=== PATIENT | female | born 1990 | race Caucasian/White ===

== ENCOUNTER → 2020-05-20 09:25 | Outpatient (CLI) | payer OTHER, SELFPAY | PROVIDERS: PCP Student in an Organized Health Care Education/Training Program; Referring Provider Advanced Practice Midwife; Visit Provider Advanced Practice Midwife | DX: Z20.828 Contact with and (suspected) exposure to other viral communicable diseases (principal) | CPT/HCPCS: 87635; 94799; C9803; U0003 ==

== ENCOUNTER 2020-05-25 04:13 | Inpatient (IN) | payer OTHER, SELFPAY ==
[2013-11-17 05:08] VITALS: BMI 25.8
[2020-05-25] VITALS (72 sets, daily range): BP systolic 130–154; BP diastolic 66–103; PULSE 59–85; RESP 14–16; TEMP 36.4–37.4; O2SAT 94–100; BMI 33.5
[2020-05-25] MEDS: Lactated Ringers 500 ML 999 ML IV (04:20)
[2020-05-25] MEDS: Lactated Ringers 1,000 ML 200 ML IV ×2 (04:51→10:17)
[2020-05-25 04:55] LABS: Absolute Lymphocyte Count 1.83 X10^3/uL (0.83-4.51); Absolute Neutrophil Count 7.2 X10^3/uL (2.0-7.7); Basophil# 0.02 X10^3/uL; Basophil% 0.2 % (0-1); Eosinophil# 0.05 X10^3/uL; Eosinophils% 0.5 % (0-5); Hematocrit 31.5 % (37-47); Hemoglobin 10.8 g/dL (12.0-15.0); Lymphocyte # 1.83 X10^3/ul (4.0); Lymphocyte % 18.4 % (19-41); Mean Corp Hgb Conc 34.3 g/dL (32-36); Mean Corpuscular Hgb 31.2 pg (27.0-32.0); Mean Platelet Vol. 12.3 fl (6.2-12.0); Monocyte# 0.78 X10^3/uL; Monocyte% 7.9 % (0-10); NRBC Flagged by Analyzer 0 % (0-5); Neutrophil # 7.18 X10^3/uL (2.7-7.7); Neutrophil % 72.4 % (47-70); Platelet Count 205 K/mm3 (150-450); RBC Distribution Width CV 12.7 % (11.6-14.6); RBC Distribution Width SD 41.2 fl (35.1-43.9); Red Blood Count 3.46 M/mm3 (4.2-5.4); White Blood Count 9.9 K/mm3 (4.4-11.0)
[2020-05-25 05:04] LABS: International Normalized Ratio 0.9; Partial Thromboplast Time 27.4 Seconds (24.1-36.2)
[2020-05-25 05:08] LABS: AST(SGOT) 31 U/L (15-37); Alanine Aminotransfer ALT/SGPT 26 U/L (13-56); Creatinine, Serum 0.75 mg/dL (0.55-1.02); EST Glomerular Filtration Rate 96 mL/min (>60); Est Glom Filt Rate - Afr Amer 116 mL/min (>60); Estimated Creatinine Clearance 118.61 ml/min; Uric Acid 5.5 mg/dL (2.6-6.0)
[2020-05-25] MEDS: fentaNYL-bupivacaine (epidural) 100 ML BAG EPIDURAL (05:37)
[2020-05-25 05:38] LABS: Protein, Urine (Random) 17.5 mg/dL (<11.9); Protein:Creat Ratio 293 mg/g CRE (0-200)
[2020-05-25] MEDS: Oxytocin 30 units/NS 500 ml 30 UNITS/500 ML IV.SOLN IV (07:37)
--- NOTE | 2020-05-25 08:36 | HP.PCM_ITS ---
History Date of Admission: 05/25/20 Final MAK: 05/19/20 Gestational age: 40 Weeks and 6 Days History of this : This is a 29 year-old, G [], P [], at 40 weeks gestational age. Allergies acetaminophen [From Vicodin] Allergy (Verified 11/17/13 05:10) Shortness of breath hydrocodone bitartrate [From Vicodin] Allergy (Verified 11/17/13 05:10) Shortness of breath morphine Allergy (Verified 11/17/13 05:10) Shortness of breath tramadol Allergy (Verified 11/17/13 05:10) Shortness of breath Home Medications: Home Medications Albuterol Inhaler [Ventolin Hfa] 1 - 2 puff INHALATION Q4H PRN PRN #1 inhaler 11/17/13 Smoking Status: Never smoker Alcohol: None Number of Fetus(es): 1 NST - FHR Rate Baby A Baseline: 120 Variability:: Moderate Accelerations:: 15 x 15 Decelerations:: Variable Uterine Activity:: Q 2-5 minutes History Past Pregnancies: Past Pregnancies Delivery Date Name GA/ Weeks Outcome Route Wt Sex Labor Length Anesthesia Delivery Location Provider FOB Labs: See [facility] prenatals Physical Exam Vitals: Vital Signs Temp Pulse BP Pulse Ox 98.4 F 62 141/86 H 99 05/25/20 08:25 05/25/20 08:23 05/25/20 08:09 05/25/20 08:23 General: Alert, Oriented x3 Abdomen: Soft, Non Tender, Non-Distended, Gravid Neurological: Cranial nerves II-XII grossly intact PRESS [employer]ER: Normal external genitalia Estimated gestational size: Appropriate for gestational size Presentation: Cephalic Cervix Dilation (cm): 5 - AROM clear fluid Station: -1 Effacement (%): 80 Assessment/Plan This is a 29 year-old, at 40&6 weeks gestational age. Admit to L&D COVID negative GBS negative Pain - epidural On pitocin for augmentation EFW - less than 4500g, patient with adequate pelvis Routine care
[2020-05-25] MEDS: Ondansetron 4 MG/2 ML Vial IV (09:37)
[2020-05-25] MEDS: Oxytocin 30 units/NS 500 ml 30 UNITS/500 ML IV.SOLN 334 UNITS IV (10:57)
--- NOTE | 2020-05-25 11:15 | PCM.OPRPT ---
Vaginal Delivery Maternal Presentation: Active Labor Amniotic Membrane Rupture Type: Artificial Amniotic Fluid Description: Clear Final MAK: 05/19/20 Gestational age: 40 Weeks and 6 Days Date of Procedure: 05/25/20 Pre-Operative Diagnosis: Labor Post-Operative Diagnosis: Labor Surgery/ Procedure Performed: Spontaneous Vaginal Delivery Type of Anesthesia: Epidural Description of Procedure: Patient prepped & draped in stirrups when C/C/+2. She pushed to deliver head. head was gently guided to allow delivery of anterior and posterior shoulders. No excess traction placed on head. Body delivered and placed on maternal abdomen. 3VC clamped & cut in delayed fashion. Placenta delivered with gentle traction and good uterine tone obtained. Presentation: VISHNU Placental Delivery Description: Expressed Placenta Disposition: [facility] Cord Vessel Description: 3 Vessels Cord Entanglement: None Estimated Blood Loss: 300ml Infant A gender: Male (1 minute): 8 (5 minute): 9 Episiotomy Description: None Laceration: 2nd degree - perineal & 1st degree right vaginal - repaired with 3-0 vicryl Medications given after delivery: IV Pitocin Complications: None
[2020-05-25] MEDS: Ibuprofen 600 MG Tablet PO (20:24)
[2020-05-26 03:40] VITALS: BP 130/66; PULSE 63; RESP 16; TEMP 36.5
[2020-05-26 08:59] VITALS: BP 148/100; PULSE 60; RESP 14; TEMP 36.4
--- NOTE | 2020-05-26 11:35 | PCM.PN.OB ---
- Physical Exam Vitals/I&O's: Vital Signs Temp Pulse Resp BP Pulse Ox 97.5 F L 60 14 148/100 H 99 05/26/20 08:59 05/26/20 08:59 05/26/20 08:59 05/26/20 08:59 05/25/20 09:24 Oxygen Delivery Method Room Air Weight: 233 lb 11.04 oz Body Mass Index (BMI) 33.5 Intake and Output for Last 24 Hours 05/24/20 05/25/20 05/26/20 23:59 23:59 23:59 Intake Total 2956.97 / 2956.97 Output Total 1300 / 1300 Balance 1656.97 / 1656.97 General: Alert, Oriented x3 Abdomen: Soft, Non Tender, Non-Distended - ff mid & below umb Extremities: No Calf Tenderness Neurological: Cranial nerves II-XII grossly intact Current Medications Acetaminophen (Tylenol) 1,000 mg PO Q8H PRN PRN PRN Reason: Pain Score 1-10/10 Albuterol Sulfate (Ventolin Aerosols) 2.5 mg INHALATION Q4H PRN PRN Reason: Wheezing Bisacodyl (Dulcolax) 10 mg RECTAL UD PRN PRN Reason: If no BM Dibucaine (Dibucaine) 1 applic TOPICAL TID PRN PRN; Protocol PRN Reason: Discomfort Hydrocortisone (Hytone) 1 applic TOPICAL TID PRN PRN; Protocol PRN Reason: Discomfort Ibuprofen (Motrin) 600 mg PO Q6H PRN PRN PRN Reason: Pain Score 1-10/10 Last Admin: 05/25/20 20:24 Dose: 600 mg Documented by: Methylergonovine Maleate (Methergine) 0.2 mg IM X1 PRN PRN Reason: Excess bleeding/uterine atony Ondansetron HCl (Zofran) 4 mg IV Q4H PRN PRN PRN Reason: Nausea Senna/Docusate Sodium (Senokot-S, Eulalia-Colace) 1 - 2 tablet PO DAILY PRN PRN PRN Reason: Constipation Simethicone (Mylicon) 80 mg PO PCHS PRN PRN Reason: Indigestion/Stomach pain Sodium Chloride () 5 - 15 ml IV UD PRN PRN Reason: SALINE FLUSH Medical Necessity - Tobacco Use Smoking Status: Never smoker Assessment/Plan PPD#1 Heme - HDS, no issues. Elevated BP's - some mildly elevated BP's during labor & PP. PreE labs normal thus patient with gestational hypertension. Repeat BP again is elevated so will start labetalol and continue to monitor. Patient requests discharge but is agreeable to stay overnight for BP monitoring.
[2020-05-26 12:00] VITALS: BP 144/78; PULSE 65; RESP 14; TEMP 36.4
--- NOTE | 2020-05-26 12:03 | DCINST_ITS ---
Discharge Diet: No Restrictions Discharge Activity: May Drive, May Shower May resume sexual activity in: 6 weeks Additional Instructions: If you experience any of the following, contact your healthcare provider. * Bleeding that soaks a pad every hour for 2 hours * Fever 100.4 or higher * Unrelieved incision or abdominal pain * Swelling, redness, discharge or bleeding from your incision or episiotomy site * Your incision begins to separate * Problems urinating (including inability to urinate or burning while urinating). * Visual changes * Severe headache * Flu-like symptoms * Pain or redness in one of both of your breasts * Pain, warmth, tenderness or swelling in your legs, especially the calf area * Frequent nausea and vomiting * Symptoms of depression or anxiety If you experience any of the following, call 911 or go to the nearest Emergency Room. * Chest pain * Problems breathing * Seizure activity * Partial or complete paralysis of a body part, slurred speech, weakness or drooping of the face, or a sudden inability to walk or hold your balance Allergies/Adverse Reactions: Allergies acetaminophen [From Vicodin] Allergy (Verified 11/17/13 05:10) Shortness of breath hydrocodone bitartrate [From Vicodin] Allergy (Verified 11/17/13 05:10) Shortness of breath morphine Allergy (Verified 11/17/13 05:10) Shortness of breath tramadol Allergy (Verified 11/17/13 05:10) Shortness of breath Medications to take at Discharge Albuterol Inhaler [Ventolin Hfa] 1 - 2 puff INHALATION Q4H PRN PRN #1 inhaler 11/17/13 Ibuprofen [Motrin] 600 mg PO Q6H PRN PRN tablet 05/26/20 Labetalol [Trandate (Beta Maura)] 200 mg PO BID #60 tab 05/26/20 The following prescriptions were given: Labetalol [Trandate (Beta Maura)] 200 mg PO BID #60 tab Prescription Printed Primary Care Physician: Be Batista DO [Primary Care Provider] - Test Results: Test results from this visit will be discussed in further detail at your follow- up appointment, if applicable.
[2020-05-26] MEDS: Labetalol 200 MG Tablet PO ×2 (12:10→20:47)
[2020-05-26 13:00] VITALS: BP 144/72
[2020-05-26 15:15] VITALS: BP 138/82; PULSE 70; RESP 14; TEMP 36.4
[2020-05-26 20:20] VITALS: BP 145/45; PULSE 66; RESP 18; TEMP 36.2
[2020-05-27] VITALS: BP 127/72; PULSE 68
--- NOTE | 2020-05-27 00:07 | PCM.PN.OB ---
Subjective: Denies headaches or blurry vision. She denies complaints other than needs some sleep. - Physical Exam Vitals/I&O's: Vital Signs Temp Pulse Resp BP Pulse Ox 97.2 F L 68 18 127/72 H 99 05/26/20 20:20 05/27/20 00:00 05/26/20 20:20 05/27/20 00:00 05/25/20 09:24 Oxygen Delivery Method Room Air Weight: 233 lb 11.04 oz Body Mass Index (BMI) 33.5 Intake and Output for Last 24 Hours 05/25/20 05/26/20 05/27/20 23:59 23:59 23:59 Intake Total 2956.97 / 2956.97 Output Total 1300 / 1300 Balance 1656.97 / 1656.97 General: Alert, Oriented x3 Abdomen: Soft, Non Tender, Non-Distended Extremities: No Calf Tenderness Current Medications Acetaminophen (Tylenol) 1,000 mg PO Q8H PRN PRN PRN Reason: Pain Score 1-10/10 Albuterol Sulfate (Ventolin Aerosols) 2.5 mg INHALATION Q4H PRN PRN Reason: Wheezing Bisacodyl (Dulcolax) 10 mg RECTAL UD PRN PRN Reason: If no BM Dibucaine (Dibucaine) 1 applic TOPICAL TID PRN PRN; Protocol PRN Reason: Discomfort Hydrocortisone (Hytone) 1 applic TOPICAL TID PRN PRN; Protocol PRN Reason: Discomfort Ibuprofen (Motrin) 600 mg PO Q6H PRN PRN PRN Reason: Pain Score 1-10/10 Last Admin: 05/25/20 20:24 Dose: 600 mg Documented by: Labetalol HCl (Trandate) 200 mg PO TID [facility] Last Admin: 05/26/20 20:47 Dose: 200 mg Documented by: Methylergonovine Maleate (Methergine) 0.2 mg IM X1 PRN PRN Reason: Excess bleeding/uterine atony Ondansetron HCl (Zofran) 4 mg IV Q4H PRN PRN PRN Reason: Nausea Senna/Docusate Sodium (Senokot-S, Eulalia-Colace) 1 - 2 tablet PO DAILY PRN PRN PRN Reason: Constipation Simethicone (Mylicon) 80 mg PO PCHS PRN PRN Reason: Indigestion/Stomach pain Sodium Chloride () 5 - 15 ml IV UD PRN PRN Reason: SALINE FLUSH Medical Necessity - Tobacco Use Smoking Status: Never smoker Assessment/Plan PPD#2 Gestational hypertension - BP's improved on labetalol 200mg tid Plan for discharge later this am
--- NOTE | 2020-05-27 00:13 | DCINST_ITS ---
Discharge Diet: No Restrictions Discharge Activity: May Drive, May Shower May resume sexual activity in: 6 weeks Additional Instructions: If you experience any of the following, contact your healthcare provider. * Bleeding that soaks a pad every hour for 2 hours * Fever 100.4 or higher * Unrelieved incision or abdominal pain * Swelling, redness, discharge or bleeding from your incision or episiotomy site * Your incision begins to separate * Problems urinating (including inability to urinate or burning while urinating). * Visual changes * Severe headache * Flu-like symptoms * Pain or redness in one of both of your breasts * Pain, warmth, tenderness or swelling in your legs, especially the calf area * Frequent nausea and vomiting * Symptoms of depression or anxiety If you experience any of the following, call 911 or go to the nearest Emergency Room. * Chest pain * Problems breathing * Seizure activity * Partial or complete paralysis of a body part, slurred speech, weakness or drooping of the face, or a sudden inability to walk or hold your balance * * TAKE LABETALOL 200MG 3 TIMES PER DAY. Allergies/Adverse Reactions: Allergies acetaminophen [From Vicodin] Allergy (Verified 11/17/13 05:10) Shortness of breath hydrocodone bitartrate [From Vicodin] Allergy (Verified 11/17/13 05:10) Shortness of breath morphine Allergy (Verified 11/17/13 05:10) Shortness of breath tramadol Allergy (Verified 11/17/13 05:10) Shortness of breath Medications to take at Discharge Albuterol Inhaler [Ventolin Hfa] 1 - 2 puff INHALATION Q4H PRN PRN #1 inhaler 11/17/13 Ibuprofen [Motrin] 600 mg PO Q6H PRN PRN tab 05/26/20 Labetalol [Trandate (Beta Maura)] 200 mg PO BID #60 tab 05/26/20 Labetalol [Trandate (Beta Maura)] 200 mg PO TID #90 tablet 05/27/20 The following prescriptions were given: Labetalol [Trandate (Beta Maura)] 200 mg PO BID #60 tab Prescription Printed Labetalol [Trandate (Beta Maura)] 200 mg PO TID #90 tablet Please Follow Up With: Parker Zurita MD - 2-3 days Primary Care Physician: Be Batista DO [Primary Care Provider] - Test Results: Test results from this visit will be discussed in further detail at your follow- up appointment, if applicable.
[2020-05-27 01:50] VITALS: BP 134/74; PULSE 78; RESP 17; TEMP -12.7; TEMP 9.1
[2020-05-27] MEDS: Labetalol 200 MG Tablet PO (06:35)
[2020-05-27 08:19] VITALS: BP 133/77; PULSE 78; RESP 18; TEMP 36.5
== END 2020-05-27 10:35 | disposition home or self-care (01) | DRG 807 ==
LOC: WPOUT 04:16 → WP 04:16
PROVIDERS: Obstetrics & Gynecology; Admitting Provider Obstetrics & Gynecology; PCP Student in an Organized Health Care Education/Training Program; Visit Provider Obstetrics & Gynecology
DX: O76 Abnormality in fetal heart rate and rhythm complicating labor and delivery (principal); O13.4 Gestational [pregnancy-induced] hypertension without significant proteinuria, complicating childbirth; O70.1 Second degree perineal laceration during delivery; Z37.0 Single live birth; Z3A.40 40 weeks gestation of pregnancy
CPT/HCPCS: 59025; 59050; 82565; 82570; 84156; 84450; 84460; 84550; 85025; 85610; 85730; 86850; 86900; 86901; 99218; J7120; G0378; J2405

== ENCOUNTER 2022-07-04 07:10 | Inpatient (IN) | payer OTHER, SELFPAY ==
[2022-07-04] VITALS (104 sets, daily range): BP systolic 89–130; BP diastolic 50–92; PULSE 56–187; TEMP 36.1–37.8; O2SAT 83–100; BMI 33.5
[2022-07-04] MEDS: Lactated Ringers 1,000 ML 50 ML IV ×2 (07:55→12:52)
[2022-07-04 08:08] LABS: Absolute Lymphocyte Count 2.04 X10^3/uL (0.83-4.51); Absolute Neutrophil Count 6.1 X10^3/uL (2.0-7.7); Basophil# 0.02 X10^3/uL; Basophil% 0.2 % (0-1); Eosinophil# 0.08 X10^3/uL; Eosinophils% 0.9 % (0-5); Hematocrit 34.1 % (37-47); Hemoglobin 11.7 g/dL (12.0-15.0); Lymphocyte # 2.04 X10^3/ul (0.83-4.51); Lymphocyte % 22.5 % (19-41); Mean Corp Hgb Conc 34.3 g/dL (32-36); Mean Corpuscular Hgb 33.1 pg (27.0-32.0); Mean Corpuscular Volume 96.3 fL (81-99); Mean Platelet Vol. 11.4 fl (6.2-12.0); Monocyte# 0.72 X10^3/uL; Monocyte% 7.9 % (0-10); NRBC Flagged by Analyzer 0 % (0-5); Neutrophil # 6.09 X10^3/uL (2.7-7.7); Neutrophil % 67.1 % (47-70); Platelet Count 210 K/mm3 (150-450); RBC Distribution Width CV 12.9 % (11.6-14.6); RBC Distribution Width SD 44.8 fl (35.1-43.9); Red Blood Count 3.54 M/mm3 (4.2-5.4); White Blood Count 9.1 K/mm3 (4.4-11.0)
[2022-07-04] MEDS: 0.9% Normal Saline Single 100 ML IV.SOLN. INTRA-UTER (08:15)
[2022-07-04 08:21] LABS: Bedside Glucose 97 mg/dL (74-106)
--- NOTE | 2022-07-04 08:24 | PCM.HP.OB ---
HPI - General General Date of Admission: 07/04/22 Date of Service: 07/04/22 Chief Complaint: IOL for GDMA2 uncontrolled HPI Narrative NIKITA DONOVAN, is a 31 F @ 37.6 weeks who presents medically indicated IOL due to GDMA2, uncontrolled. PFSH PFS Medical History (Updated 07/04/22 @ 23:[address] Emma Gallagher MD) Asthma Elevated blood pressure reading without diagnosis of hypertension Gestational diabetes Home Medications albuterol sulfate 90 mcg/actuation aerosol inhaler (Ventolin HFA) 1 - 2 puff inhalation Q4H PRN PRN Wheezing ##1 11/17/13 [Rx Last Taken Unknown] insulin lispro 200 unit/mL (3 mL) subcutaneous pen 40 unit subcut DAILY gdm 07/04/22 [History Last Taken 07/03/22 23:00] [id number] 1 mg tablet tab PO 07/04/22 [History Last Taken 07/03/22 21:00] Allergy/AdvReac Type Severity Reaction Status Date / Time acetaminophen [From Vicodin] Allergy Shortness Verified 07/04/22 07:27 of breath hydrocodone bitartrate Allergy Shortness Verified 07/04/22 07:27 [From Vicodin] of breath morphine Allergy Shortness Verified 07/04/22 07:27 of breath tramadol Allergy Shortness Verified 07/04/22 07:27 of breath Social History Smoking Status: Former smoker History Elective abortions Hx Para 1 Spontaneous abortions Hx # Term Pregnancies Ectopic pregnancies Hx # Pregnancies Multiple births # of living children NST FHR Rate Baby A Baseline: 135 Variability:: Moderate Accelerations:: 15 x 15 Decelerations:: None NST Reactive:: Yes FHR Category:: Category I Uterine Activity:: occasional Vital Signs Vital Signs Vital Signs: 07/04/22 08:16 07/04/22 08:16 07/04/22 08:17 Temperature Temperature Source Pulse Rate 79 Blood Pressure 119/69 BP Systolic 119 BP Diastolic 69 Pulse Ox 93 07/04/22 08:17 07/04/22 08:16 07/04/22 08:16 Temperature Temperature Source Temporal Pulse Rate 75 Blood Pressure BP Systolic BP Diastolic Pulse Ox 96 07/04/22 08:16 Temperature 97.2 F L Temperature Source Pulse Rate Blood Pressure BP Systolic BP Diastolic Pulse Ox Weight Weight: 105.9 kg Body Mass Index (BMI) 33.5 Physical Exam Narrative VE: 1.5/50/-3- transcervical mcpherson placed with 40cc saline. Pt tolerated well. Const alert and oriented x3 General Appearance: cooperative HEENT normocephalic GI GI Narrative: Gravid, non tender to palpation. OB / External & Speculum: external exam normal Extremity normal to inspection Skin no rashes or lesions noted Neuro oriented x3 and CN's II-XII intact bilaterally Psych Appearance: grossly normal Labs Labs Labs: Blood Type O POSITIVE Antibody Screen NEGATIVE Hct 34.1 % (37-47) L Hgb 11.7 g/dL (12.0-15.0) L Rhogam given: No Assessment & Plan (1) Gestational diabetes mellitus (GDM) requiring insulin: (2) 37 weeks gestation of : PLAN: Plan Admit to L&D Montior FHR/TOCO Epidural if requested for pain Monitor VS Anticipate Insulin pump if indicated will start pitocin
[2022-07-04] MEDS: Oxytocin 30 units/NS 500 ml 30 UNITS/500 ML IV.SOLN IV (08:41)
[2022-07-04 09:35] LABS: Bedside Glucose 97 mg/dL (74-106)
[2022-07-04 13:15] LABS: Bedside Glucose 80 mg/dL (74-106)
[2022-07-04] MEDS: 0.9% Saline Lock 10 ML Syringe IV (15:38)
[2022-07-04 16:10] LABS: Bedside Glucose 69 mg/dL (74-106)
[2022-07-04] MEDS: LACTATED RINGERS 500 ML 999 ML IV ×2 (16:43→21:42)
[2022-07-04 17:00] LABS: Bedside Glucose 71 mg/dL (74-106)
[2022-07-04] MEDS: fentaNYL-bupivacaine (epidural) 100 ML BAG EPIDURAL (17:22)
[2022-07-04 17:51] LABS: Bedside Glucose 69 mg/dL (74-106)
[2022-07-04 18:26] LABS: Bedside Glucose 60 mg/dL (74-106)
[2022-07-04] MEDS: Amnioinfusion- 0.9% NS 1,000 ML IV.SOLN. 1000 ML INTRA-UTER (18:45)
[2022-07-04 19:51] LABS: Bedside Glucose 69 mg/dL (74-106)
[2022-07-04 19:51] LABS: Bedside Glucose 78 mg/dL (74-106)
[2022-07-04 20:31] LABS: Bedside Glucose 87 mg/dL (74-106)
[2022-07-04] MEDS: Lactated Ringers 1,000 ML 200 ML IV (21:29)
[2022-07-04 21:36] LABS: Bedside Glucose 104 mg/dL (74-106)
[2022-07-04 22:10] LABS: Bedside Glucose 82 mg/dL (74-106)
[2022-07-04 23:05] LABS: Bedside Glucose 96 mg/dL (74-106)
[2022-07-04] MEDS: Oxytocin 30 units/NS 500 ml 30 UNITS/500 ML IV.SOLN 334 UNITS IV (23:16)
--- NOTE | 2022-07-04 23:22 | OP.PCM_ITS ---
Vaginal Delivery Maternal Presentation Maternal Presentation: Medically Indicated Induction Type of Induction: Pitocin, Justice Bulb and Amniotomy Medical Reason for Induction: - (uncontrolled GMDA2) Operative Information Date of Procedure: 07/04/22 Pre-Operative Diagnosis: 37+week gestation, GDMA2 uncontrolled Post-Operative Diagnosis: same, live male Surgery / Procedure Performed: Spontaneous Vaginal Delivery Type of Anesthesia: Epidural Drain: Justice to straight drain Estimated Blood Loss: 200 Time of Delivery: 23:14 Findings Description of Procedure: I was called to notify that the patient was complete at 0 station upon pushing efforts deep variable decelerations as well as some late decelerations. Upon my arrival head is at 0 station. Good maternal pushing efforts delivered the infant's head. Tight nuchal cord was noted. This nuchal cord was clamped and cut and reduced. The 's anterior shoulder followed by posterior shoulder and the infant's body was then delivered without difficulty. The was placed on the mother's chest for immediate skin to skin. was vigorous at time of delivery. Delayed cord clamping could not be performed due to the n uchal. Placenta was then delivered intact spontaneously without complication. Vaginal and perineal tissue intact. Presentation: Vertex Amniotic Membrane Rupture Type: Artificial Amniotic Fluid Description: Clear Placental Delivery Description: Spontaneous Placenta Disposition: [facility] Specimen(s) Removed: Placenta Cord Vessel Description: 3 Vessels Cord Entanglement: Around neck x 1, tight Nuchal Cord Compression: With compression Infant A Gender: Male (1 minute): 9 (5 minute): 9 Delayed Cord Clamping: No Post Vaginal Delivery Medications Given After Delivery: IV Pitocin Episiotomy Description: None Laceration: None Complication Complications: None
[2022-07-05] VITALS (23 sets, daily range): BP systolic 100–141; BP diastolic 57–84; PULSE 71–100; RESP 16; TEMP 36.1–37; O2SAT 91–99
[2022-07-05 00:40] LABS: Bedside Glucose 115 mg/dL (74-106)
--- NOTE | 2022-07-05 05:23 | NURSING ---
100 cc's of urine in hat, but pt voided a large amount and most of urine missed hat
[2022-07-05 07:21] LABS: Bedside Glucose 114 mg/dL (74-106)
--- NOTE | 2022-07-05 07:50 | PCM.PROGNOTE ---
Subjective Subjective patient seen at bedside, doing well. Patient reports good pain control. lochia mild. pumping- baby in scn due to breathing Objective Data Objective Data Vital Signs: Vital Signs Temp Pulse Resp BP Pulse Ox O2 Del Method 98.5 F 78 16 121/72 H 91 Room Air 07/05/22 04:44 07/05/22 04:46 07/05/22 04:44 07/05/22 04:46 07/05/22 04:46 07/05/22 04:44 Oxygen Delivery Method Room Air Weight: 105.9 kg Body Mass Index (BMI) 33.5 Intake & Output: Intake and Output for Last 24 Hours 07/03/22 07/04/22 07/05/22 23:59 23:59 23:59 Intake Total 2750.20 / 2750.20 333 / 333 Output Total 1900 / 1900 450 / 450 Balance 850.20 / 850.20 -117 / -117 Lab / Micro Data Result Diagrams: 07/04/22 07:55 Labs: Laboratory Results - last 24 hr 07/04/22 07:45: POC Glucose 97 07/04/22 07:55: WBC 9.1, RBC 3.54 L, Hgb 11.7 L, Hct 34.1 L, MCV 96.3, MCH 33.1 H, MCHC 34.3, RDW Std Deviation 44.8 H, RDW Coeff of Aidee 12.9, Plt Count 210, MPV 11.4, Immature Gran % (Auto) 1.400 H, Neut % (Auto) 67.1, Lymph % (Auto) 22.5, Dickinson % (Auto) 7.9, Eos % (Auto) 0.9, Baso % (Auto) 0.2, Absolute Neuts (auto) 6.1, Absolute Lymphs (auto) 2.04, Nucleated RBC % 0 07/04/22 07:55: Blood Type O POSITIVE, Antibody Screen NEGATIVE 07/04/22 08:50: POC Glucose 97 07/04/22 12:52: POC Glucose 80 07/04/22 15:49: POC Glucose 69 L 07/04/22 16:38: POC Glucose 71 L 07/04/22 17:31: POC Glucose 69 L 07/04/22 18:02: POC Glucose 60 L 07/04/22 18:51: POC Glucose 69 L 07/04/22 19:11: POC Glucose 78 07/04/22 20:06: POC Glucose 87 07/04/22 21:05: POC Glucose 104 07/04/22 21:46: POC Glucose 82 07/04/22 22:44: POC Glucose 96 07/05/22 00:18: POC Glucose 115 H 07/05/22 07:00: POC Glucose 114 H Micro: Microbiology 07/04/22 07:50 Nasal Secretion SARS-CoV-2 Antigen (Rapid) - Final Physical Exam Const alert and oriented x3 General Appearance: cooperative HEENT normocephalic Neck General: normal visual inspection GI soft to palpation and non-distended GI Narrative: Fundus firm Extremity normal to inspection and no calf tenderness Skin no rashes or lesions noted Neuro oriented x3 and CN's II-XII intact bilaterally Psych mental status grossly normal Assessment & Plan Assessment/Plan (1) Vaginal delivery: PLAN: Plan PPD#1 , Doing well Routine care pain mgmt ambulation
--- NOTE | 2022-07-05 08:57 | NURSING ---
0845- This RN IBCLC called to room to assist with pumping. Pt. nervous that not much was coming out. Pump settings set to cycles 80 and suction 25%. Reviewed with pt. that these are good pumping settings. Flanges seemed appropriate size, with nipple being able to move freely in the flange without large amounts of areola being pulled into flange. Pt. pumped for 21 minutes and then this RN assisted with collection of milk as [employer] solution architect was in room giving update on baby in SCN. 5 swabs and 2cc of milk collected in a syringe from this first pumping session. Milk labeled and taken over to SCN and given to SCN RN. Encouraged that pt. was doing a great job and that during the colostrum phase any amounts of colostrum are good to be collected for baby. Education also given in the process of milk transition and purpose of pumping while seperated from . Pt. verbalizes understanding.
[2022-07-05] MEDS: Ibuprofen 600 MG Tablet PO (09:02)
--- NOTE | 2022-07-05 10:37 | CASEMGMT ---
Labor and Delivery Unit Brief SW note? Date of Referral: 07/05/22 Time of Referral: 5:02am Date of Intervention: 07/05/22 Time of Intervention: 9:45am ? Referral Site: [facility] ? Reason for Referral: Special Care Admission ? Brief History SW spoke w/MOB and FOB in [facility]. They have been together for 13 years, have a 2 year old at home named Natty. 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 They have no financial concerns. They have all needed supplies for baby including crib/bassinet/car seat/clothing/diapers/wipes. They have two vehicles. They have supportive family, MOB's mother will watch both children when MOB returns to work. Both MOB and FOB's parents, siblings are helpful. ? No history of mental health or substance abuse issues for FOB and MOB, according to MOB and FOB. ? SW spoke w/them about the events of the last few hours. They were alarmed with the baby being moved to [facility]. He seems to be doing better now and they are relieved, glad he is doing better. Support offered. ? SW did give them information and reviewed information on PPD and anxiety, Help Me Grow, Shaken Baby, Safe sleeping, crisis number, and mental health resources. SW did review signs of PPD with MOB and FOB. Assessment: MOB and FOB both spoke w/SW openly and answered all questions. MOB holding baby and both MOB and FOB attentive to baby. Both parents concerned with baby ending up in [facility], concern appropriate to situation. ? Plan: Baby to go home w/MOB and FOB when ready for discharge. ? Response to Plan: MOB and FOB in agreement with plan. ? NATHALIA Lemus
[2022-07-06 01:45] VITALS: BP 110/67; PULSE 72; RESP 15; TEMP 36.4
[2022-07-06 06:15] LABS: Bedside Glucose 86 mg/dL (74-106)
--- NOTE | 2022-07-06 07:37 | PCM.PROGNOTE ---
Subjective Subjective patient seen at bedside, doing well. Patient reports good pain control. lochia mild. Objective Data Objective Data Vital Signs: Vital Signs Temp Pulse Resp BP Pulse Ox O2 Del Method 97.5 F L 72 15 110/67 91 Room Air 07/06/22 01:45 07/06/22 01:45 07/06/22 01:45 07/06/22 01:45 07/05/22 04:46 07/06/22 01:45 Oxygen Delivery Method Room Air Weight: 105.9 kg Body Mass Index (BMI) 33.5 Intake & Output: Intake and Output for Last 24 Hours 07/04/22 07/05/22 07/06/22 23:59 23:59 23:59 Intake Total 2750.20 / 2750.20 333 / 333 Output Total 1900 / 1900 1150 / 1150 Balance 850.20 / 850.20 -817 / -817 Lab / Micro Data Result Diagrams: 07/04/22 07:55 Labs: Laboratory Results - last 24 hr 07/06/22 05:55: POC Glucose 86 Micro: Microbiology 07/04/22 07:50 Nasal Secretion SARS-CoV-2 Antigen (Rapid) - Final Physical Exam Const alert and oriented x3 General Appearance: cooperative HEENT normocephalic Neck General: normal visual inspection GI soft to palpation and non-distended GI Narrative: Fundus firm Extremity normal to inspection and no calf tenderness Skin no rashes or lesions noted Neuro oriented x3 and CN's II-XII intact bilaterally Psych mental status grossly normal Assessment & Plan Assessment/Plan (1) Vaginal delivery: PLAN: Plan PPD#2 , Doing well Routine care pain mgmt ambulation dc home or hotel- baby still in SCN
--- NOTE | 2022-07-06 07:38 | DCINST_ITS ---
Discharge Instructions Procedure Vaginal Delivery Diet Discharge Diet: No restrictions Activity May resume sexual activity in: 6-8 weeks Dressing / Incision Call your doctor if you observe: Fever of 101 or Higher, Inability to urinate, Using more than 1 pad per hour and Uncontrolled pain Follow Up Care Please Follow Up With: Emma Gallagher MD When: 1-2 weeks post and again at 6 weeks post . [phone] Test Results: Test results from this visit will be discussed in further detail at your follow- up appointment, if applicable. Discharge Plan Admission Admit Date/Time: 07/04/22 07:10 Attending Provider: Emma Gallagher Primary Care Provider: Be Batista Discharge Orders/Prescriptions Prescriptions: New acetaminophen 500 mg Tablet 1,000 mg PO Q6H PRN PRN (Reason: Pain 1-10 Or Fever) Qty: 0 0RF ibuprofen 600 mg Tablet 600 mg PO Q6H PRN PRN (Reason: Pain Score 1-10) Qty: 0 0RF Continued albuterol sulfate [Ventolin HFA] 1 INHALER inhaler 1 - 2 puff inhalation Q4H PRN PRN (Reason: Wheezing) Qty: 1 0RF [id number] 1 mg Tablet PO Discontinued insulin lispro 200 unit/mL (3 mL) Insulin Pen 40 unit SUBCUT DAILY Referrals / Follow Up: Be Batista DO [Primary Care Provider] - Disposition Disposition (needs filled in before D/C Order can be placed): Home, Self Care
[2022-07-06 07:57] VITALS: BP 114/73; PULSE 70; RESP 16; TEMP 36.4
[2022-07-06 13:45] VITALS: BP 125/86; PULSE 66; RESP 16; TEMP 36.1
[2022-07-07 09:06] LABS: Bedside Glucose 55 mg/dL (74-106)
[2022-07-07 09:06] LABS: Bedside Glucose 44 mg/dL (74-106)
== END 2022-07-06 16:55 | disposition home or self-care (01) | DRG 807 ==
PROVIDERS: Admitting Provider Obstetrics & Gynecology; PCP Student in an Organized Health Care Education/Training Program; Visit Provider Obstetrics & Gynecology
DX: O76 Abnormality in fetal heart rate and rhythm complicating labor and delivery (principal); Z37.0 Single live birth; O24.424 Gestational diabetes mellitus in childbirth, insulin controlled; Z3A.37 37 weeks gestation of pregnancy; O69.2XX0 Labor and delivery complicated by other cord entanglement, with compression, not applicable or unspecified; Z87.891 Personal history of nicotine dependence; Z28.310 Unvaccinated for COVID-19; Z28.9 Immunization not carried out for unspecified reason
CPT/HCPCS: 59025; 59050; 82962; 85025; 86850; 86900; 86901; 87426; 99218; J7030; J7120; A4216; G0378

== ENCOUNTER 2024-04-29 23:28 | Inpatient (IN) | payer OTHER, SELFPAY ==
[2024-04-29 23:34] VITALS: BMI 33.5
[2024-04-29] MEDS: Lactated Ringers 1,000 ML 999 ML IV (23:35)
[2024-04-29 23:58] LABS: Absolute Lymphocyte Count 2.66 X10^3/uL (0.83-4.51); Absolute Neutrophil Count 6.8 X10^3/uL (2.0-7.7); Basophil# 0.03 X10^3/uL; Basophil% 0.3 % (0-1); Eosinophil# 0.03 X10^3/uL; Eosinophils% 0.3 % (0-5); Hematocrit 35.1 % (37-47); Hemoglobin 12.5 g/dL (12.0-15.0); Lymphocyte # 2.66 X10^3/ul (0.83-4.51); Lymphocyte % 25.9 % (19-41); Mean Corp Hgb Conc 35.6 g/dL (32-36); Mean Corpuscular Volume 89.8 fL (81-99); Mean Platelet Vol. 11.7 fl (6.2-12.0); Monocyte# 0.66 X10^3/uL; Monocyte% 6.4 % (0-10); NRBC Flagged by Analyzer 0 % (0-5); Neutrophil # 6.84 X10^3/uL (2.7-7.7); Neutrophil % 66.4 % (47-70); Platelet Count 219 K/mm3 (150-450); RBC Distribution Width CV 12.7 % (11.6-14.6); Red Blood Count 3.91 M/mm3 (4.2-5.4); White Blood Count 10.3 K/mm3 (4.4-11.0)
[2024-04-30] VITALS (21 sets, daily range): BP systolic 119–142; BP diastolic 62–83; PULSE 48–82; RESP 16–17; TEMP 36.2–36.5; O2SAT 96–98
[2024-04-30] MEDS: Oxytocin 15 Units/NS 250ml 15 UNITS/250 ML IV.SOLN 334 UNITS IV (00:03)
--- NOTE | 2024-04-30 00:09 | PCM.HP.OB ---
HPI - General General Date of Admission: 04/29/24 HPI Narrative NIKITA DONOVAN, is a 33 F who presents at 39w4d for active labor at term, . SROM at home, clear. Maternal Data Information MAK Calculator Estimated Delivery Date Method Current WG Current Estimate 05/02/24 Manual 39w 5d Final MAK: 05/02/24 PFSH PFSH Medical History (Updated 04/30/24 @ 00:12 by Gabby Gil CNM) Gestational diabetes Asthma Elevated blood pressure reading without diagnosis of hypertension Home Medications ?Medication ?Instructions ?Recorded ?Last Taken ?Type albuterol sulfate 90 mcg/actuation 1 - 2 puff inhalation Q4H PRN PRN 11/17/13 Unknown Rx aerosol inhaler (Ventolin HFA) Wheezing ##1 [id number] 1 mg tab PO 07/04/22 07/03/22 21:00 History tablet acetaminophen 500 mg tablet 1,000 mg (2 x 500 mg) PO Q6H PRN 07/06/22 Unknown Rx PRN Pain 1-10 Or Fever #0 tabs ibuprofen 600 mg tablet 600 mg PO Q6H PRN PRN Pain Score 07/06/22 Unknown Rx 1-10 #0 tabs Allergy/AdvReac Type Severity Reaction Status Date / Time acetaminophen (From Vicodin) Allergy Shortness Verified 04/29/24 23:42 of breath hydrocodone bitartrate (From Allergy Shortness Verified 04/29/24 23:42 Vicodin) of breath morphine Allergy Shortness Verified 04/29/24 23:42 of breath tramadol Allergy Shortness Verified 04/29/24 23:42 of breath Social History Smoking Status: Never smoker History Elective abortions Hx Para 1 Spontaneous abortions Hx # Term Pregnancies Ectopic pregnancies Hx # Pregnancies Multiple births # of living children NST FHR Rate Baby A Baseline: 135 Variability:: Moderate Accelerations:: 15 x 15 Decelerations:: Variable FHR Category:: Category II Uterine Activity:: every 2-3 minutes Vital Signs Vital Signs Vital Signs: 04/30/24 00:07 04/30/24 00:07 Pulse Rate 62 Blood Pressure 126/71 H BP Systolic 126 BP Diastolic 71 Weight Weight: 234 lb 2 oz Body Mass Index (BMI) 33.5 Physical Exam Narrative Complete dilation upon my arrival, vertex Labs Labs Labs: Blood Type O POSITIVE Antibody Screen NEGATIVE Hct 35.1 % (37-47) L Hgb 12.5 g/dL (12.0-15.0) Syphilis Total Ab Pending Rhogam given: No Assessment & Plan (1) Active labor at term: (2) History of gestational diabetes mellitus (GDM): (3) Spontaneous rupture of membranes: PLAN: Plan 1) Admit to labor and delivery 2) GBS negative 3) SROM clear fluid 4) Routine labs 5) Advanced dilation and unable to receive requested epidural 6) Category 2 FHT 7) collaborating physician and notified of patient status
--- NOTE | 2024-04-30 00:16 | EX.PCM.OBRPT ---
Assessment & Plan (1) Vaginal delivery: Maternal Data Information MAK Calculator Estimated Delivery Date Method Current WG Current Estimate 05/02/24 Manual 39w 5d Vaginal Delivery Maternal Presentation Maternal Presentation: Active Labor and Spontaneous Rupture of Membranes Operative Information Date of Procedure: 04/29/24 Pre-Operative Diagnosis: Active labor at term, SROM Post-Operative Diagnosis: Surgery / Procedure Performed: Spontaneous Vaginal Delivery Type of Anesthesia: None Estimated Blood Loss: 200ml Time of Delivery: 23:58 Findings Description of Procedure: Progressed to complete with urge to push. Unmedicated. of viable male infant over intact perineum. APGARS 8,9 respectively. Infant head delivered with body immediately forthcoming. CANx1 Placed on maternal abdomen, strong cry. Mouth and nares suctioned for secretions. Pitocin started for active 3rd stage management. Cord doubly clamped and cut by FOB after pulsations ceased, delayed cord clamping. Placenta delivered intact via barry, 3 vessel cord intact. Perineum inspected and intact. Fundus firm and hemostasis achieved. EBL 200ml. Mom and baby stable, planning to breastfeed. Family bonding well. notified of delivery. Presentation: Vertex and GHISLAINE Amniotic Membrane Rupture Type: Spontaneous Amniotic Fluid Description: Clear Placental Delivery Description: Spontaneous Placenta Disposition: [facility] Cord Vessel Description: 3 Vessels Cord Entanglement: Around neck x 1, loose Nuchal Cord Compression: Without compression A Gender: Male (1 minute): 8 (5 minute): 9 Delayed Cord Clamping: Yes Post Vaginal Delivery Medications Given After Delivery: IV Pitocin Episiotomy Description: None Laceration: None Complication Complications: None
[2024-04-30 00:33] LABS: Syphilis Antibodies Non-reactive
[2024-04-30] MEDS: Oxytocin 15 Units/NS 250ml 15 UNITS/250 ML IV.SOLN 83 UNITS IV (00:50)
[2024-04-30 07:08] LABS: Absolute Lymphocyte Count 2.15 X10^3/uL (0.83-4.51); Absolute Neutrophil Count 11.9 X10^3/uL (2.0-7.7); Basophil# 0.02 X10^3/uL; Basophil% 0.1 % (0-1); Eosinophil# 0.02 X10^3/uL; Eosinophils% 0.1 % (0-5); Hemoglobin 12.5 g/dL (12.0-15.0); Lymphocyte # 2.15 X10^3/ul (0.83-4.51); Lymphocyte % 14.2 % (19-41); Mean Corp Hgb Conc 34.7 g/dL (32-36); Mean Corpuscular Volume 92.1 fL (81-99); Mean Platelet Vol. 12.1 fl (6.2-12.0); Monocyte# 0.95 X10^3/uL; Monocyte% 6.3 % (0-10); NRBC Flagged by Analyzer 0 % (0-5); Neutrophil # 11.89 X10^3/uL (2.7-7.7); Neutrophil % 78.6 % (47-70); POSITIVE COUNT YES; Platelet Count 127 K/mm3 (150-450); RBC Distribution Width CV 12.5 % (11.6-14.6); RBC Distribution Width SD 41.6 fl (35.1-43.9); Red Blood Count 3.91 M/mm3 (4.2-5.4); White Blood Count 15.1 K/mm3 (4.4-11.0)
[2024-04-30] MEDS: Ibuprofen 600 MG Tablet PO (12:44)
--- NOTE | 2024-04-30 15:25 | PCM.PN.OB ---
Subjective Subjective Doing well per patient and nursing staff. Ambulating and taking PO without difficulty. Voiding and passing flatus. Pain controlled. , services for assistance. Denies headache, visual changes, chest pain, shortness of breath, leg pain or increased bleeding. Lochia normal. Objective Data Objective Data Vital Signs: Vital Signs Temp Pulse Resp BP Pulse Ox O2 Del Method 97.2 F L 82 16 128/83 H 96 Room Air 04/30/24 12:30 04/30/24 12:46 04/30/24 12:30 04/30/24 12:46 04/30/24 07:22 04/30/24 07:22 Oxygen Delivery Method Room Air Weight: 234 lb 2 oz Body Mass Index (BMI) 33.5 Intake & Output: Intake and Output for Last 24 Hours 04/28/24 04/29/24 04/30/24 23:59 23:59 23:59 Intake Total 949.55 / 949.55 Output Total 200 / 200 Balance 749.55 / 749.55 Lab / Micro Data 04/30/24 06:50 Labs: Laboratory Results - last 24 hr 04/29/24 23:40: WBC 10.3, RBC 3.91 L, Hgb 12.5, Hct 35.1 L, MCV 89.8, MCH 32.0, MCHC 35.6, RDW Std Deviation 41.0, RDW Coeff of Aidee 12.7, Plt Count 219, MPV 11.7, Immature Gran % (Auto) 0.700, Neut % (Auto) 66.4, Lymph % (Auto) 25.9, [place] % (Auto) 6.4, Eos % (Auto) 0.3, Baso % (Auto) 0.3, Absolute Neuts (auto) 6.8, Absolute Lymphs (auto) 2.66, Nucleated RBC % 0, Syphilis Total Ab Non-reactive, Blood Type O POSITIVE, Antibody Screen NEGATIVE 04/30/24 06:30: WBC Cancelled, Corrected WBC Cancelled, RBC Cancelled, Hgb Cancelled, Hct Cancelled, MCV Cancelled, MCH Cancelled, MCHC Cancelled, RDW Std Deviation Cancelled, RDW Coeff of Aidee Cancelled, Plt Count Cancelled, MPV Cancelled, Immature Gran % (Auto) Cancelled, Neut % (Auto) Cancelled, Lymph % (Auto) Cancelled, [place] % (Auto) Cancelled, Eos % (Auto) Cancelled, Baso % (Auto) Cancelled, Absolute Neuts (auto) Cancelled, Absolute Lymphs (auto) Cancelled, Total Counted Cancelled, Neutrophils % (Manual) Cancelled, Band Neutrophils % Cancelled, Lymphocytes % (Manual) Cancelled, Monocytes % (Manual) Cancelled, Eosinophils % (Manual) Cancelled, Basophils % (Manual) Cancelled, Metamyelocytes % Cancelled, Myelocytes % Cancelled, Promyelocytes % Cancelled, Blast Cells % Cancelled, Plasma Cell % (Manual) Cancelled, Other Cells % Cancelled, Nucleated RBC % Cancelled, Nucleated RBCs/100 WBC Cancelled, Differential Comment Cancelled, Diff Path Review Cancelled, Hypersegmented Neuts Cancelled, Atypical Lymphocytes Cancelled, Reactive Lymphocytes Cancelled, Smudge Cells Cancelled, Toxic Granulation Cancelled, Toxic Vacuolation Cancelled, Dohle Bodies Cancelled, Tonia Rods Cancelled, Platelet Estimate Cancelled, Plt Morphology Comment Cancelled, RBC Morphology Cancelled 04/30/24 06:30: RBC Morphology Cancelled, Polychromasia Cancelled, Hypochromasia Cancelled, Basophilic Stippling Cancelled, Anisocytosis Cancelled, Microcytosis Cancelled, Macrocytosis Cancelled, Spherocytes Cancelled, Sickle Cells Cancelled, Target Cells Cancelled, Tear Drop Cells Cancelled, Ovalocytes Cancelled, Stomatocytes Cancelled, [place] Bodies Cancelled, Atilio Cells Cancelled, Bite Cells Cancelled, Crenated Cell Cancelled, Acanthocytes (Spur) Cancelled, Rouleaux Cancelled, Schistocytes Cancelled 04/30/24 06:50: WBC 15.1 H, RBC 3.91 L, Hgb 12.5, Hct 36.0 L, MCV 92.1, MCH 32.0, MCHC 34.7, RDW Std Deviation 41.6, RDW Coeff of Aidee 12.5, Plt Count 127 L, MPV 12.1 H, Immature Gran % (Auto) 0.700, Neut % (Auto) 78.6 H, Lymph % (Auto) 14.2 L, [place] % (Auto) 6.3, Eos % (Auto) 0.1, Baso % (Auto) 0.1, Absolute Neuts (auto) 11.9 H, Absolute Lymphs (auto) 2.15, Nucleated RBC % 0 ROS Constitutional Constitutional: Reports systems reviewed and no addt'l complaints, except as documented; Denies headache(s) Eyes Eyes: Denies acute decrease in peripheral vision, blurry vision or change in vision ENT HEENT: Reports systems reviewed and no addt'l complaints, except as documented Cardiovascular Cardiovascular: Denies chest pain or dizziness Respiratory/Chest Respiratory/Chest: Denies cough, dyspnea, dyspnea on exertion, shortness of breath at rest or shortness of breath with exertion Gastrointestinal Gastrointestinal: Denies abdominal pain, diarrhea, nausea or vomiting Genitourinary Genitourinary: Denies abdominal discomfort Musculoskeletal Musculoskeletal: Denies limited range of motion Integumentary Integumentary: Reports systems reviewed and no addt'l complaints, except as documented Neurologic Neurologic: Reports systems reviewed and no addt'l complaints, except as documented Psychiatric Psychiatric: Reports systems reviewed and no addt'l complaints, except as documented Endocrine Endocrinology: Reports systems reviewed and no addt'l complaints, except as documented Hematologic/Lymphatic Hematologic/Lymphatic: Reports systems reviewed and no addt'l complaints, except as documented Allergic/Immunologic Allergic/Immunologic: Reports systems reviewed and no addt'l complaints, except as documented Physical Exam Const alert and oriented x3 General Appearance: cooperative Orientation / Consciousness: awake, oriented to person, oriented to place and oriented to time Exam Limitations: no limitations HEENT normocephalic Head and Scalp: normal to inspection, normocephalic and atraumatic Face and Sinus: normal facial exam Eyes General Eye: normal appearance of both eyes Neck full ROM Chest Chest: symmetrical chest wall rise Resp normal respiratory effort and normal air movement Auscultation: clear to auscultation bilaterally Cardio regular rate, regular rhythm, S1 normal heart sound, S2 normal heart sound, no murmurs, no rub, no gallops and no clicks GI normal to inspection, nondistended, normoactive bowel sounds and non-tender appearance of the vagina normal Bladder / Kidney Exam: no CVA tenderness Back/Spine normal ROM Extremity normal to inspection and full ROM Skin no rashes or lesions noted Neuro oriented x3, CN's II-XII intact bilaterally and moves all extremities Sensorium / Orientation: awake, alert and oriented to person Motor Exam: clonus absent Deep Tendon Reflexes: Rt Patellar (L4): 2+ and Lt Patellar (L4): 2+ Assessment & Plan (1) Vaginal delivery: PLAN: Plan 1) Routine PP care 2) Pain management 3) 4) Planning D/C home tomorrow
[2024-05-01 05:50] VITALS: BP 120/71; PULSE 56; O2SAT 95
[2024-05-01 05:59] VITALS: BP 120/71; PULSE 65; RESP 16; TEMP 36.5; O2SAT 96
--- NOTE | 2024-05-01 07:28 | PN.OBGYN_ITS ---
Subjective Subjective Doing well per patient and nursing staff. Ambulating and taking PO without difficulty. Voiding and passing flatus. Pain controlled. , services for assistance. Denies headache, visual changes, chest pain, shortness of breath, leg pain or increased bleeding. Lochia normal. Objective Data Objective Data Vital Signs: Vital Signs Temp Pulse Resp BP Pulse Ox O2 Del Method 97.7 F L 65 16 120/71 96 Room Air 05/01/24 05:59 05/01/24 05:59 05/01/24 05:59 05/01/24 05:59 05/01/24 05:59 05/01/24 05:59 Oxygen Delivery Method Room Air Weight: 234 lb 2 oz Body Mass Index (BMI) 33.5 Intake & Output: Intake and Output for Last 24 Hours 04/29/24 04/30/24 05/01/24 23:59 23:59 23:59 Intake Total 949.55 / 949.55 Output Total 200 / 200 Balance 749.55 / 749.55 Lab / Micro Data 04/30/24 06:50 Labs: Laboratory Results - last 24 hr 04/30/24 06:50: WBC 15.1 H, RBC 3.91 L, Hgb 12.5, Hct 36.0 L, MCV 92.1, MCH 32.0, MCHC 34.7, RDW Std Deviation 41.6, RDW Coeff of Aidee 12.5, Plt Count 127 L, MPV 12.1 H, Immature Gran % (Auto) 0.700, Neut % (Auto) 78.6 H, Lymph % (Auto) 14.2 L, [place] % (Auto) 6.3, Eos % (Auto) 0.1, Baso % (Auto) 0.1, Absolute Neuts (auto) 11.9 H, Absolute Lymphs (auto) 2.15, Nucleated RBC % 0 ROS Constitutional Constitutional: Reports systems reviewed and no addt'l complaints, except as documented; Denies headache(s) Eyes Eyes: Denies acute decrease in peripheral vision, blurry vision or change in vision ENT HEENT: Reports systems reviewed and no addt'l complaints, except as documented Cardiovascular Cardiovascular: Denies chest pain or dizziness Respiratory/Chest Respiratory/Chest: Denies cough, dyspnea, dyspnea on exertion, shortness of breath at rest or shortness of breath with exertion Gastrointestinal Gastrointestinal: Denies abdominal pain, diarrhea, nausea or vomiting Genitourinary Genitourinary: Denies abdominal discomfort Musculoskeletal Musculoskeletal: Denies limited range of motion Integumentary Integumentary: Reports systems reviewed and no addt'l complaints, except as documented Neurologic Neurologic: Reports systems reviewed and no addt'l complaints, except as documented Psychiatric Psychiatric: Reports systems reviewed and no addt'l complaints, except as documented Endocrine Endocrinology: Reports systems reviewed and no addt'l complaints, except as documented Hematologic/Lymphatic Hematologic/Lymphatic: Reports systems reviewed and no addt'l complaints, except as documented Allergic/Immunologic Allergic/Immunologic: Reports systems reviewed and no addt'l complaints, except as documented Physical Exam Const alert and oriented x3 General Appearance: cooperative Orientation / Consciousness: awake, oriented to person, oriented to place and oriented to time Exam Limitations: no limitations HEENT normocephalic Head and Scalp: normal to inspection, normocephalic and atraumatic Face and Sinus: normal facial exam Eyes General Eye: normal appearance of both eyes Neck full ROM Chest Chest: symmetrical chest wall rise Resp normal respiratory effort and normal air movement Auscultation: clear to auscultation bilaterally Cardio regular rate, regular rhythm, S1 normal heart sound, S2 normal heart sound, no murmurs, no rub, no gallops and no clicks GI normal to inspection, nondistended, normoactive bowel sounds and non-tender appearance of the vagina normal Bladder / Kidney Exam: no CVA tenderness Back/Spine normal ROM Extremity normal to inspection and full ROM Skin no rashes or lesions noted Neuro oriented x3, CN's II-XII intact bilaterally and moves all extremities Sensorium / Orientation: awake, alert and oriented to person Motor Exam: clonus absent Deep Tendon Reflexes: Rt Patellar (L4): 2+ and Lt Patellar (L4): 2+ Assessment & Plan (1) Vaginal delivery: PLAN: Plan 1)PPD #2 2) Vitals stable 3) Pain controlled 4) D/C home. Follow up in 2 weeks and 6 weeks PP
--- NOTE | 2024-05-01 08:03 | DS.PCM_ITS ---
Providers Date of Admission: 04/29/24 Primary Care Physician: Dr. Be Batista DO Reason For Visit: LABOR AND DELIVERY Diagnosis Discharge Diagnosis (1) Vaginal delivery: Status: Acute Code(s): O80 - Encounter for full-term uncomplicated delivery Plan 1)PPD #2 2) Vitals stable 3) Pain controlled 4) D/C home. Follow up in 2 weeks and 6 weeks PP Medications at Discharge Home Medications albuterol sulfate 90 mcg/actuation aerosol inhaler (Ventolin HFA) 1 - 2 puff inhalation Q4H PRN PRN Wheezing ##1 11/17/13 [id number] 1 mg tablet tab PO 07/04/22 acetaminophen 500 mg tablet 1,000 mg (2 x 500 mg) PO Q6H PRN PRN Pain 1-10 Or Fever #0 tabs 07/06/22 ibuprofen 600 mg tablet 600 mg PO Q6H PRN PRN Pain Score 1-10 #0 tabs 07/06/22 Hospital Course Summary of Care Provided Minutes Spent on Discharge: 15 Weight / BMI Weight Weight: 234 lb 2 oz Body Mass Index (BMI) 33.5 ABG / Lab / Microbiology Data 04/30/24 06:50 Laboratory: Laboratory Results - last 24 hr 04/30/24 06:50: WBC 15.1 H, RBC 3.91 L, Hgb 12.5, Hct 36.0 L, MCV 92.1, MCH 32.0, MCHC 34.7, RDW Std Deviation 41.6, RDW Coeff of Aidee 12.5, Plt Count 127 L, MPV 12.1 H, Immature Gran % (Auto) 0.700, Neut % (Auto) 78.6 H, Lymph % (Auto) 14.2 L, [place] % (Auto) 6.3, Eos % (Auto) 0.1, Baso % (Auto) 0.1, Absolute Neuts (auto) 11.9 H, Absolute Lymphs (auto) 2.15, Nucleated RBC % 0 D/C Instructions Discharge Diet: No restrictions Discharge Activity: Return to Normal Activity, May Drive, May Shower and May Take a Tub Bath May resume sexual activity in: 6 weeks Weight Bearing Status: Full weight bearing Call your doctor if you observe: Fever of 101 or Higher, Inability to urinate, Using more than 1 pad per hour, Shortness of breath, Chest pain, Increased palpitations (irregular heartbeat), Calf discomfort and Uncontrolled pain Please Follow Up With: Gabby Gil CNM When: 2 week virtual visit and 6 week visit Meaningful Use Info Meaningful Use Meaningful Use Diagnoses (Choose all that apply): None applicable Ischemic Stroke Statin Dosing Therapy Reference: STATIN DOSE THERAPY REFERENCE: * Patients > 75 years receive moderate or high dose statin therapy. * Patients 75 years or YOUNGER should receive HIGH intensity statin dose unless contraindicated. You will be required to document reason for non-treatment if statin daily dose does not meet guidelines. HIGH DOSE STATIN THERAPY DAILY Atorvastatin > than or = to 40 mg Rosuvastatin > than or = to 20 mg Amlodipine + Atorvastatin > than or = to 2.5/40 mg Ezetimibe + Simvastatin 10/80 mg Simvastatin 80mg Discharge Plan Admission Admit Date/Time: 04/29/24 23:28 Primary Reason for Your Visit: Vaginal delivery Attending Provider: Gabby Gil Primary Care Provider: Be Batista Discharge Orders/Prescriptions Prescriptions: No Action albuterol sulfate [Ventolin HFA] 1 INHALER inhaler 1 - 2 puff inhalation Q4H PRN PRN (Reason: Wheezing) Qty: 1 0RF [id number] 1 mg Tablet PO acetaminophen 500 mg Tablet 1,000 mg PO Q6H PRN PRN (Reason: Pain 1-10 Or Fever) Qty: 0 0RF ibuprofen 600 mg Tablet 600 mg PO Q6H PRN PRN (Reason: Pain Score 1-10) Qty: 0 0RF Referrals / Follow Up: Be Batista DO [Primary Care Provider] -
[2024-05-01 09:57] VITALS: BP 123/77; PULSE 68
[2024-05-01 10:00] VITALS: BP 123/77; PULSE 68; RESP 16; TEMP 36.7
[2024-05-01 13:25] VITALS: BP 117/77; PULSE 63
[2024-05-01 13:37] VITALS: BP 117/77; PULSE 63; RESP 16; TEMP 36.4
== END 2024-05-01 14:30 | disposition home or self-care (01) | DRG 807 ==
PROVIDERS: Admitting Provider Advanced Practice Midwife; PCP Student in an Organized Health Care Education/Training Program; Referring Provider Advanced Practice Midwife; Visit Provider Advanced Practice Midwife
DX: O42.92 Full-term premature rupture of membranes, unspecified as to length of time between rupture and onset of labor (principal); Z37.0 Single live birth; O69.81X0 Labor and delivery complicated by cord around neck, without compression, not applicable or unspecified; Z3A.39 39 weeks gestation of pregnancy; Z86.32 Personal history of gestational diabetes
CPT/HCPCS: 59025; 59050; 85025; 86780; 86850; 86900; 86901; 99221; J7120; G0378